=== PATIENT | male | born 1990 ===

== ENCOUNTER 2020-02-10 23:45 | Emergency (ER) | payer OTHER, SELFPAY ==
--- NOTE | 2020-02-11 00:16 | XR_ITS ---
EXAMINATION: XR ANKLE, LEFT XR FOOT, LEFT CLINICAL INFORMATION: left foot pain. box fell on foot COMPARISON: None TECHNIQUE: AP, lateral, and mortise views of the left ankle and AP, lateral, and oblique views of the left foot. FINDINGS: LEFT ANKLE: No fracture. Alignment is anatomic. Ankle mortise is symmetric. Joint spaces are maintained. No ankle joint effusion. Soft tissues are normal. LEFT FOOT: At the lateral margin of the second toe middle phalanx near the DIP joint, there is a small 2 mm osseous fragment which is age indeterminate. A small avulsion fracture is possible. No additional fractures are identified. Bone mineralization is normal. Joint spaces are well-preserved. XR/XR ankle LT min 3V IMPRESSION: Age-indeterminate 2 mm osseous fragment at the lateral margin of the second toe middle phalanx near the DIP joint. Recommend correlation for point tenderness in this region as this could be an acute fracture or a remnant of an old injury. Otherwise, no fracture or malalignment.
--- NOTE | 2020-02-11 00:16 | XR_ITS ---
EXAMINATION: XR ANKLE, LEFT XR FOOT, LEFT CLINICAL INFORMATION: left foot pain. box fell on foot COMPARISON: None TECHNIQUE: AP, lateral, and mortise views of the left ankle and AP, lateral, and oblique views of the left foot. FINDINGS: LEFT ANKLE: No fracture. Alignment is anatomic. Ankle mortise is symmetric. Joint spaces are maintained. No ankle joint effusion. Soft tissues are normal. LEFT FOOT: At the lateral margin of the second toe middle phalanx near the DIP joint, there is a small 2 mm osseous fragment which is age indeterminate. A small avulsion fracture is possible. No additional fractures are identified. Bone mineralization is normal. Joint spaces are well-preserved. XR/XR foot LT 2V IMPRESSION: Age-indeterminate 2 mm osseous fragment at the lateral margin of the second toe middle phalanx near the DIP joint. Recommend correlation for point tenderness in this region as this could be an acute fracture or a remnant of an old injury. Otherwise, no fracture or malalignment.
[2020-02-11 00:21] VITALS: BP 121/79; PULSE 64; RESP 16; TEMP 37.2; O2SAT 99; BMI 24.4
[2020-02-11] MEDS: Ibuprofen 800 MG TABLET PO (00:37)
--- NOTE | 2020-02-11 01:43 | ED_ITS ---
HPI - Extremity Injury (Lower) General Chief Complaint: Extremity Injury, Lower Stated Complaint: WORK INJURY - FOOT PAIN Time Seen by Provider: 02/11/20 00:15 Source: patient Mode of arrival: ambulatory Limitations: no limitations History of Present Illness HPI Narrative: patient states who works at [employer] and a box fluid metal fell onto his left foot. Patient denies any other trauma. Related Data Previous Rx's Medication Instructions Recorded naproxen 500 mg PO BID PRN #20 tab 02/11/20 Allergies Allergy/AdvReac Type Severity Reaction Status Date / Time No Known Allergies Allergy Verified 02/11/20 00:15 Review of Systems Review of Systems: Yes all other systems are reviewed and are negative Constitutional: Constitutional: Reports as per HPI and Reports no additional constitutional complaints Eyes: Eyes: Reports as per HPI and Reports no additional eye complaints ENT: Reports system reviewed and no additional complaints, except as docum ented and Reports as per HPI Cardiovascular: Cardiovascular: Reports as per HPI and Reports no additional cardiovascular complaints Respiratory: Respiratory: Reports as per HPI and Reports no additional respiratory complaints Gastrointestinal: Gastrointestinal: Reports as per HPI and Reports no additional gastrointestinal complaints Musculoskeletal: Musculoskeletal: Reports no additional musculoskeletal complaints and Reports as per HPI Comments: Positive for left big toe pain Neurologic: Reports system reviewed and no additional complaints, except as documented and Reports as per HPI Psychiatric: Psychiatric: Reports no additional psychiatric complaints and Reports as per HPI [facility] Past Medical History Medical History No known health problems Social History Social History Alcohol intake: current Smoking Status: Never smoker Use of substances other than those prescribed or required for medical reasons: No Advance Directives: No Advance Directives Information Provided: No Physical Exam Vital Signs: Vital Signs: Last Vital Signs Temp 98.9 F 02/11/20 00:21 Pulse 64 02/11/20 00:21 Resp 16 02/11/20 00:21 BP 121/79 02/11/20 00:21 Pulse Ox 99 02/11/20 00:21 Body Mass Index 24.4 Const: General: cooperative, healthy appearing, comfortable, no acute distress, well developed, alert, awake and Physically active Orientation/consciousness: oriented to place HENMT: Head: Yes normal to inspection, Yes No palpable skull fracture present, Yes normocephalic, Yes atraumatic, No abrasion, No Aleman's sign, No contusion, No hematoma, No laceration, No raccoon eyes, No scalp tenderness, No Temporal artery tenderness present and No periorbital ecchymosis Eyes: General: appearance normal, both eyes and all related structures Neck: Neck: Yes normal visual inspection and Yes full ROM Chest: Chest palpation & inspection: normal inspection of the chest and normal palpation of entire chest wall Resp: Effort & Inspection: normal respiratory effort and able to speak in complete sentences Auscultation: clear to auscultation bilaterally Cardio: Jugular venous distension: no JVD Heart sounds: S1 normal heart sound present and S2 normal heart sound present GI: Inspection: Yes normal to inspection : General: No CVA tenderness and Yes no CVA tenderness Back/Spine/Pelvis: Back: no CVA tenderness, No CVA tenderness and No back tenderness Skin: General skin exam: no rashes or lesions noted Neuro: General: oriented to person and oriented to place Extrem: Other: left foot positive for abrasion or dorsal aspect of big toe. Positive for tenderness on middle phalanx of the 2nd toe.. Rest of left lower extremity normal negative for signs of trauma and pulses are intact. Right lower extremity normal General: Yes normal to inspection and Yes full ROM Psych: Appearance: grossly normal, well kempt and not disheveled Course Course Course Narrative: patient will x-ray to rule out any fracture. Reevaluation(s) Reevaluation #1: Patient's left foot x-ray show fracture at middle phalanx of Second toe. Patient will be placed in soft postop shoe follow-up with [facility]. patient given tetanus injection. patient will be placed in luisana tape. patient given crutches. Time: 01:40 MDM - Extremity Injury (Lower) MDM Narrative Medical decision making narrative: fracture of 2nd toe. Discharge Plan Discharge Clinical Impression: Fracture of toe Patient Disposition: Home, Self-Care Instructions: Toe Fracture (ED) Additional Instructions: return to the ED for worsening pain, increased swelling of lower extremity, bluish discoloration of digit, redness, or any other concerning symptoms. Prescriptions: New naproxen 500 mg tablet 500 mg PO BID PRN (Reason: pain) Qty: 20 RF: 0 Referrals: [facility] [Provider Group] - 2 days ( 2nd toe fracture) Julio Go MD [Physician] - 2 days ( 2nd toe middle phalanx fracture) Stand Alone Forms: Work/School Release Interventions: ED Discharge Assessment Last Done: 02/11/20 02:22 Discharge Date/Time: 02/11/20 02:26 Print Language: Prydeinig
== END 2020-02-11 02:26 | disposition home or self-care (01) ==
PROVIDERS: Emergency Provider Emergency Medicine
DX: S92.525A Nondisplaced fracture of middle phalanx of left lesser toe(s), initial encounter for closed fracture (principal); W20.8XXA Other cause of strike by thrown, projected or falling object, initial encounter; Y93.89 Activity, other specified; Y92.512 Supermarket, store or market as the place of occurrence of the external cause; Y99.0 Civilian activity done for income or pay
CPT/HCPCS: 73610; 73620; 90715; 99283

== ENCOUNTER → 2020-02-15 13:04 | Outpatient (BNVA) | payer OTHER, SELFPAY | PROVIDERS: Visit Provider Physician Assistant | DX: S92.912A Unspecified fracture of left toe(s), initial encounter for closed fracture (principal) | CPT/HCPCS: 99202 ==

== ENCOUNTER 2020-03-02 13:59 | Outpatient (REF) | payer OTHER, SELFPAY | END 2020-03-02 14:00 | disposition home or self-care (01) | LOC: HO.LAB 13:59 | PROVIDERS: Visit Provider Internal Medicine | DX: Z20.828 Contact with and (suspected) exposure to other viral communicable diseases (principal) | CPT/HCPCS: C9803; U0003 ==

== ENCOUNTER → 2020-03-08 14:22 | Outpatient (BNVA) | payer OTHER, SELFPAY | PROVIDERS: Visit Provider Physician Assistant | DX: M89.8X7 Other specified disorders of bone, ankle and foot (principal) | CPT/HCPCS: 99212 ==

== ENCOUNTER 2021-03-06 11:31 | Outpatient (REF) | payer OTHER, SELFPAY ==
[2021-03-06 13:28] LABS: COVID-19 Test Positive (Negative)
== END 2021-03-06 11:32 | disposition home or self-care (01) ==
LOC: HO.LAB 11:31
PROVIDERS: Visit Provider Internal Medicine
DX: Z20.822 Contact with and (suspected) exposure to COVID-19 (principal)
CPT/HCPCS: 36415; 87635; C9803

== ENCOUNTER 2023-09-13 08:19 | Emergency (ER) | payer OTHER, SELFPAY ==
[2023-09-13 08:28] VITALS: BP 158/92; PULSE 64; RESP 16; TEMP 36.6; O2SAT 98; BMI 26.0
[2023-09-13 08:36] VITALS: BP 158/92; PULSE 64; RESP 16; TEMP 36.6; O2SAT 98
--- NOTE | 2023-09-13 08:37 | ED_ITS ---
HPI - Nausea/Vomiting/Diarrhea General Chief complaint: Nausea/Vomiting/Diarrhea Stated complaint: ?Food poising Time Seen by Provider: 09/13/23 08:21 Source: patient and family Mode of arrival: ambulatory Limitations: no limitations History of Present Illness ED Provider: UMBERTO REA Narrative: 33 yo male with no sig PMH both and he ate a soup she got mildly ill n/v/d felt better then he ate more then next day became ill again with n/v/d abdominal cramps no bloody stools no abx and it will not improve. He did go to [place] 2 weeks ago but no issues on return. He vomited this AM MD elicited complaint: nausea, vomiting, diarrhea and abdominal pain Onset (ago): day(s) (2) Description of vomiting: food contents and watery Description of diarrhea: watery Associated nausea: Yes Associated abdominal pain: Yes Location of pain: diffuse Radiation: diffuse Pain consistency: intermittent Severity: mild Quality: cramping Exacerbating factors: eating Relieving factors: none Context: possible food poisoning Associated symptoms: loss of appetite, malaise and nausea/vomiting Treatment prior to arrival: immodium Related Data Previous Rx's ?Medication ?Instructions ?Recorded naproxen 500 mg tablet 500 mg PO BID PRN pain #20 tabs 02/11/20 ondansetron 4 mg disintegrating 4 mg PO Q8H PRN nausea and 09/13/23 tablet vomiting #20 tabs Allergies Allergy/AdvReac Type Severity Reaction Status Date / Time No Known Allergies Allergy Verified 09/13/23 08:30 Review of Systems Review of Systems: Constitutional : No Weight loss, No Fever, No Chills ENT/Mouth : No sore throat, No Rhinorrhea Eyes: No Swelling, No Redness Cardiovascular : No Chest Pain, No SOB, NoEdema Respiratory : No Cough, No Sputum, No Wheezing Gastrointestinal : Positive Nausea, Positive Vomiting, positive Diarrhea, positive abdominal Pain, No Hematochezia, No Melena Genitourinary : No Dysuria, No Urinary Frequency, No Hematuria, No Urgency Musculoskeletal : No joint pain, No Myalgias, No Joint Swelling Skin : No Skin Lesions, No rash Neuro : No Weakness, No Numbness, No Dizziness, No Headache Psych : No Anxiety/Panic, No Depression All other systems reviewed and are negative. Gastrointestinal: Gastrointestinal: Reports nausea PMFSH Past Medical History Attestation statement: The following information was validated with the patient. Source: old records reviewed Medical History No known health problems Social History Social History (Updated 09/13/23 @ 08:39 by Velia Mercer DO) Alcohol intake: current Patient Tobacco Use Status: Never used Tobacco Current occupational status: employed Current occupation: [employer] - Right Handed Physical Exam Vital Signs: Vital Signs: Last Vital Signs Temp 98 F 09/13/23 08:28 Pulse 64 09/13/23 08:28 Resp 16 09/13/23 08:28 BP 158/92 H 09/13/23 08:28 Pulse Ox 98 09/13/23 08:28 O2 Del Method Room Air 09/13/23 08:28 BMI result Body Mass Index 26.0 Appearance: Alert. Oriented X3. No acute distress. Eyes: Pupils equal, round and reactive to light. ENT: Pharynx normal. Neck: Normal inspection. Neck supple. CVS: Normal heart rate and rhythm. Pulses normal. Respiratory: No respiratory distress. Breath sounds normal. Abdomen: Soft and nontender. Skin: Skin warm and dry. Normal skin color. Normal skin turgor. Extremities: No lower extremity edema. No calf ttp Neuro: Oriented X 3. No motor deficit. No sensory deficit. Medical Decision Making Medical Decision Making [facility] Narrative: 33 yo male with sick contacts in and both ill after eating soup no fevers or bloody stools reported he has benign abdominal exam at this time will obtain basic labs, hydrate and order zofran/toradol. Overall not toxic and no localized pain to suggest appendicitis/cholecystitis. Differential Diagnosis Differential Diagnoses: The differential diagnosis associated with the presentation includes food toxicity, dehydrate, lyte abnormality Admission/Observation Consideration of admission/observation: Escalation of care including admission/observation considered not toxic, improved stable for DC, tolerating PO Lab Data MDM Lab Attestation statement: I reviewed the patient's lab results. Independent Historian Clinical information obtained from an independent historian. History obtained from or confirmed by: Spouse External Record Review External record reviewed: Inpatient record Prescription Management I considered prescription management with: Other Discharge Plan Discharge Clinical Impression: Food poisoning Patient Disposition: Home, Self-Care Instructions: Food Poisoning (ED) Additional Instructions: return for worsening symptoms, bloody stools, severe pain, high fevers or any other concerns bland diet for 48 hours than advance slowy stay hydrated and drink plenty of fluids Prescriptions: New ondansetron 4 mg tablet,disintegrating 4 mg PO Q8H PRN (Reason: nausea and vomiting) Qty: 20 0RF No Action naproxen 500 mg tablet 500 mg PO BID PRN (Reason: pain) Qty: 20 0RF Stand Alone Forms: Work/School Release Print Language: Guyanese
[2023-09-13] MEDS: Lactated Ringers 1,000 ML 999 ML IV ×2 (08:46→08:48)
[2023-09-13 08:52] LABS: MANUAL DIFF FLAG NO
[2023-09-13] MEDS: ondansetron HCL 4 MG/2 ML VIAL IVPUSH (08:52)
[2023-09-13] MEDS: Ketorolac Tromethamine 15 MG/ML VIAL IVPUSH (08:53)
[2023-09-13 08:54] LABS: Basophils Percent Auto 0.3 % (0-2); Eosinophils Percent Auto 0.1 % (0-4); Hematocrit 48.2 % (42.0-52.0); Hemoglobin 15.9 g/dl (14.0-18.0); Imm Gran Abs Auto 0.04 X10*3/uL (0.00-0.03); Imm Gran Pct Auto 0.4 % (0.0-0.4); Lymphocytes Absolute Auto 1.4 X10*3/uL (1.2-4.9); Lymphocytes Percent Auto 15.5 % (20-40); Mean Corpuscular Hemoglobin 25.9 pg (27.0-33.0); Mean Corpuscular Volume 78.5 fL (80.0-98.0); Mean Platelet Volume 9.8 fL (9.4-12.4); Monocytes Absolute Auto 0.5 X10*3/uL (0.1-1.2); Neutrophils Absolute Auto 7.3 x10*3/uL (2.0-8.3); Neutrophils Percent Auto 78.7 % (45-73); Platelet Count 240 X10*3/uL (160-400); Red Blood Count 6.14 X10*6/uL (4.60-5.80); Red Cell Distribution Width 13.6 % (11.0-16.0); White Blood Count 9.2 X10*3/uL (4.8-10.8)
[2023-09-13 09:09] LABS: Anion Gap 11 (12-20); Blood Urea Nitrogen 16 mg/dL (9-16); Carbon Dioxide 27 mmol/L (22-29); Chloride 104 mmol/L (96-108); Potassium 4.5 mmol/L (3.3-5.1); Sodium 137 mmol/L (135-145)
[2023-09-13 09:10] LABS: Alanine Aminotransferase 46 U/L (0-40); Albumin Level 4.3 g/dL (3.5-5.0); Alkaline Phosphatase 66 U/L (39-117); Aspartate Amino Transferase 26 U/L (5-37); Bilirubin Direct 0.1 mg/dL (0.0-0.5); Bilirubin Total 0.6 mg/dL (0.0-1.0); Calcium 9.4 mg/dL (8.4-10.2); Creatinine Clr Calc Pharmacy 124.1; Estimated Glomerular Filt Rate > 60; Glucose Random 123 mg/dL (60-115); Lipase 16 U/L (8-78); Magnesium 1.9 mg/dL (1.6-2.6); Total Protein 7.9 g/dL (6.5-8.0)
[2023-09-13 10:16] VITALS: BP 130/79; PULSE 61; RESP 18; TEMP 36.8; O2SAT 99
[2023-09-13 10:39] VITALS: BP 130/79; PULSE 61; RESP 18; TEMP 36.8; O2SAT 99
== END 2023-09-13 10:40 | disposition home or self-care (01) ==
PROVIDERS: Emergency Provider Emergency Medicine
DX: A05.9 Bacterial foodborne intoxication, unspecified (principal); R11.2 Nausea with vomiting, unspecified
CPT/HCPCS: 36415; 80048; 80076; 83690; 83735; 85025; 96374; 96375; 99284; 99285; J1885; J2405; J7120

== ENCOUNTER 2023-09-14 06:12 | Emergency (ER) | payer OTHER, SELFPAY ==
[2023-09-14 06:15] VITALS: BP 143/88; PULSE 54; RESP 18; TEMP 36.8; O2SAT 100; BMI 27.1
[2023-09-14 07:11] LABS: Influenza A PCR NEGATIVE (Negative); Influenza B PCR NEGATIVE (Negative); Resp Syncy Virus RNA Qual PCR NEGATIVE (Negative); SARS COV2 PCR INHOUSE NEGATIVE (Negative)
--- NOTE | 2023-09-14 08:33 | ED_ITS ---
HPI - Abdominal Pain General Chief Complaint: Abdominal Pain Stated Complaint: In yesterday food poisoning/worse today Time Seen by Provider: 09/14/23 07:03 History of Present Illness HPI narrative: Patient is a 33-year-old male presents today with having nausea vomiting diarrhea since . Positive generalized malaise. Positive weakness. Was seen yesterday discharged with medication. Symptoms started after eating a sandwich. Patient family member also had similar symptoms. Her symptom has gotten better. His symptoms persisted. No abdominal surgery in the past. No fever no chills. No chest pain. No diaphoresis. Previously healthy. On Zofran for nausea. Related Data Previous Rx's ?Medication ?Instructions ?Recorded naproxen 500 mg tablet 500 mg PO BID PRN pain #20 tabs 02/11/20 ondansetron 4 mg disintegrating 4 mg PO Q8H PRN nausea and 09/13/23 tablet vomiting #20 tabs Allergies Allergy/AdvReac Type Severity Reaction Status Date / Time No Known Allergies Allergy Verified 09/14/23 06:16 Review of Systems Review of Systems Positive nausea vomiting diarrhea Yes all other systems are reviewed and are negative [facility] Past Medical History Attestation statement: The following information was validated with the patient. Medical History No known health problems Social History Social History Alcohol intake: current Patient Tobacco Use Status: Never used Tobacco Advance Directives: No Advance Directives Information Provided: Yes Do you have a plan to hurt others: No Plan Current occupational status: employed Current occupation: [employer] - Right Handed Physical Exam ED Vital Signs: Vital Signs - 24 hr 09/14/23 06:15 09/14/23 08:38 Temperature 98.3 F 98.4 F Pulse Rate 54 64 Respiratory Rate 18 16 Blood Pressure 143/88 H 124/72 Pulse Oximetry 100 96 Oxygen Delivery Method Room Air Room Air BMI result Body Mass Index 27.1 Appearance: Alert. Oriented X3. No acute distress. Eyes: Pupils equal, round and reactive to light. ENT: Pharynx normal. Neck: Normal inspection. Neck supple. No lymph nodes noted. No crepitus CVS: Normal heart rate and rhythm. Pulses normal. Normal S1 and S2 Respiratory: No respiratory distress. Breath sounds normal. No Wheezing. No rales Abdomen: Soft and nontender. No rigidity. No distention. good BS x4 Skin: Skin warm and dry. Normal skin color. Normal skin turgor. Extremities: No lower extremity edema. Neurovascular intact to all extremities. No Lacerations. No Rash Neuro: Oriented X 3. No motor deficit. No sensory deficit. Moving all extermities. No slurred speech Medical Decision Making Medical Decision Making [facility] Narrative: Patient's repeat belly exam is soft nontender. Now tolerating p.o.. No distress. Patient's electrolytes are normal. White count slightly elevated. No distress. Lipase is normal urine negative. COVID flu RSV all negative. Will discharge patient home close follow-up on an outpatient basis felt the risk of appendicitis is very low. In stable condition. Differential Diagnosis Differential Diagnoses: The differential diagnosis associated with the presentation includes Gastroenteritis, dehydration Admission/Observation Consideration of admission/observation: Escalation of care including admission/observation considered Lab Data [facility] Lab Attestation statement: I reviewed the patient's lab results. 09/14/23 08:43 09/14/23 08:43 Labs: Lab Results 09/14/23 09/14/23 Range/Units 06:30 08:43 WBC 11.6 H (4.8-10.8) X10*3/uL RBC 5.82 H (4.60-5.80) X10*6/uL Hgb 14.8 (14.0-18.0) g/dl Hct 45.9 (42.0-52.0) % MCV 78.9 L (80.0-98.0) fL MCH 25.4 L (27.0-33.0) pg MCHC 32.2 (31.0-36.0) g/dl RDW 13.6 (11.0-16.0) % Plt Count 234 (160-400) X10*3/uL MPV 10.3 (9.4-12.4) fL Immature Gran % (Auto) 0.4 (0.0-0.4) % Neut % (Auto) 86.9 H (45-73) % Lymph % (Auto) 8.4 L (20-40) % [place] % (Auto) 4.0 (2-11) % Eos % (Auto) 0.1 (0-4) % Baso % (Auto) 0.2 (0-2) % Lymph # (Auto) 1.0 L (1.2-4.9) X10*3/uL [place] # (Auto) 0.5 (0.1-1.2) X10*3/uL Eos # (Auto) 0.0 (0.0-0.4) X10*3/uL Baso # (Auto) 0.0 (0.0-0.2) X10*3/uL Abs Immat Gran (auto) 0.05 H (0.00-0.03) X10*3/uL Absolute Neuts (auto) 10.1 H (2.0-8.3) x10*3/uL Absolute Nucleated RBC 0.000 (0.0-0.012) X10*3/uL Nucleated RBC % (auto) 0.0 (0.0-0.2) /100WBC Sodium 137 (135-145) mmol/L Potassium 4.1 (3.3-5.1) mmol/L Chloride 106 (96-108) mmol/L Carbon Dioxide 25 (22-29) mmol/L Anion Gap 10 L (12-20) BUN 11 (9-16) mg/dL Creatinine 0.96 (0.5-1.4) mg/dL Estim Creat Clear Calc 119.0 Estimated GFR > 60 Random Glucose 111 (60-115) mg/dL Calcium 8.9 (8.4-10.2) mg/dL Total Bilirubin 0.6 (0.0-1.0) mg/dL Direct Bilirubin 0.2 (0.0-0.5) mg/dL AST 20 (5-37) U/L ALT 35 (0-40) U/L Alkaline Phosphatase 61 (39-117) U/L Total Protein 7.4 (6.5-8.0) g/dL Albumin 4.1 (3.5-5.0) g/dL Lipase 14 (8-78) U/L Urine Color Yellow Urine Appearance Clear Urine pH 7.0 (5.0-9.0) Ur Specific [place] 1.020 (1.005-1.025) Urine Protein Trace (Neg-Trace) mg/dL Urine Glucose (UA) Negative (Negative) mg/dL Urine Ketones 40 (Negative) mg/dL Urine Blood Negative (Negative) Urine Nitrite Negative (Negative) Ur Leukocyte Esterase Negative (Negative) Urine RBC 0-2 (0-2) /HPF Urine WBC 6-10 H (0-5) /HPF Ur Squamous Epith Cells 0-2 (0-2) /HPF Urine Bacteria None Seen (None Seen) Hyaline Casts 0-2 (0-2) /LPF Influenza Type A (PCR) NEGATIVE (Negative) Influenza Type B (PCR) NEGATIVE (Negative) RSV RNA Qual (PCR) NEGATIVE (Negative) SARS-CoV-2 RNA (RT-PCR) NEGATIVE (Negative) Medications Administered Discontinued Medications Generic Name Dose Route Start Last Admin Trade Name Freq PRN Reason Stop Dose Admin Sodium Chloride 1,000 mls @ 999 mls/hr 09/14/23 08:45 09/14/23 10:29 Ns IV 09/14/23 09:45 Infused .Q1H1M MEGHANN Infusion Ketorolac Tromethamine 30 mg 09/14/23 08:33 09/14/23 09:11 Ketorolac Tromethamine 30 Mg/Ml Vial IVPUSH 09/14/23 08:34 30 mg ONCE ONE Administration Ondansetron HCl 4 mg 09/14/23 08:32 09/14/23 09:11 Ondansetron Hcl 4 Mg/2 Ml Vial IVPUSH 09/14/23 08:33 4 mg ONCE ONE Administration Discharge Plan Discharge Clinical Impression: Gastroenteritis Patient Disposition: Home, Self-Care Instructions: Gastroenteritis (DC) Prescriptions: No Action naproxen 500 mg tablet 500 mg PO BID PRN (Reason: pain) Qty: 20 0RF ondansetron 4 mg tablet,disintegrating 4 mg PO Q8H PRN (Reason: nausea and vomiting) Qty: 20 0RF Referrals: Physician,Unknown J [Primary Care Provider] - 09/17/23 Print Language: Afghan
[2023-09-14 08:38] VITALS: BP 124/72; PULSE 64; RESP 16; TEMP 36.9; O2SAT 96
[2023-09-14 08:52] LABS: MANUAL DIFF FLAG NO
[2023-09-14 09:02] LABS: Appearance Urine Clear; Color Urine Yellow; Glucose Urine UA Negative (Negative); Leukocyte Esterase Urine Negative (Negative); Nitrite Urine Negative (Negative); Urine Blood Negative (Negative); Urine Ketones 40 mg/dL (Negative); Urine Protein Trace mg/dL (Neg-Trace)
[2023-09-14 09:11] LABS: Alanine Aminotransferase 35 U/L (0-40); Albumin Level 4.1 g/dL (3.5-5.0); Alkaline Phosphatase 61 U/L (39-117); Anion Gap 10 (12-20); Aspartate Amino Transferase 20 U/L (5-37); Basophils Percent Auto 0.2 % (0-2); Bilirubin Direct 0.2 mg/dL (0.0-0.5); Bilirubin Total 0.6 mg/dL (0.0-1.0); Blood Urea Nitrogen 11 mg/dL (9-16); Calcium 8.9 mg/dL (8.4-10.2); Carbon Dioxide 25 mmol/L (22-29); Chloride 106 mmol/L (96-108); Eosinophils Percent Auto 0.1 % (0-4); Estimated Glomerular Filt Rate > 60; Glucose Random 111 mg/dL (60-115); Hematocrit 45.9 % (42.0-52.0); Hemoglobin 14.8 g/dl (14.0-18.0); Imm Gran Abs Auto 0.05 X10*3/uL (0.00-0.03); Imm Gran Pct Auto 0.4 % (0.0-0.4); Lipase 14 U/L (8-78); Lymphocytes Percent Auto 8.4 % (20-40); Mean Corpuscular HGB Conc 32.2 g/dl (31.0-36.0); Mean Corpuscular Hemoglobin 25.4 pg (27.0-33.0); Mean Corpuscular Volume 78.9 fL (80.0-98.0); Mean Platelet Volume 10.3 fL (9.4-12.4); Monocytes Absolute Auto 0.5 X10*3/uL (0.1-1.2); Neutrophils Absolute Auto 10.1 x10*3/uL (2.0-8.3); Neutrophils Percent Auto 86.9 % (45-73); Platelet Count 234 X10*3/uL (160-400); Potassium 4.1 mmol/L (3.3-5.1); Red Blood Count 5.82 X10*6/uL (4.60-5.80); Red Cell Distribution Width 13.6 % (11.0-16.0); Sodium 137 mmol/L (135-145); Total Protein 7.4 g/dL (6.5-8.0); White Blood Count 11.6 X10*3/uL (4.8-10.8)
[2023-09-14] MEDS: ondansetron HCL 4 MG/2 ML VIAL IVPUSH (09:11)
[2023-09-14] MEDS: Ketorolac Tromethamine 30 MG/ML VIAL IVPUSH (09:11)
[2023-09-14] MEDS: 0.9 % Sodium Chloride 1,000 ML 999 ML IV (09:11)
[2023-09-14 10:44] LABS: Bacteria Urine None Seen (None Seen); Hyaline Casts Urine 0-2 /LPF (0-2); RBC Urine 0-2 /HPF (0-2); Squamous Epithelial Cell Urine 0-2 /HPF (0-2); UACC Culture Trigger YES
== END 2023-09-14 11:45 | disposition home or self-care (01) ==
PROVIDERS: Emergency Provider Emergency Medicine Emergency Medical Services
DX: K52.9 Noninfective gastroenteritis and colitis, unspecified (principal); Z03.818 Encounter for observation for suspected exposure to other biological agents ruled out; R11.2 Nausea with vomiting, unspecified; R53.81 Other malaise; R53.1 Weakness; Z79.899 Other long term (current) drug therapy
CPT/HCPCS: 0241U; 36415; 80048; 80076; 81001; 83690; 85025; 87086; 96361; 96374; 96375; 99284; 99285; J1885; J2405